=== PATIENT | female | born 1990 | race Caucasian/White ===

== ENCOUNTER 2016-06-05 11:08 | Emergency (ER) | payer SELFPAY ==
[~2016-06-05] VITALS: Ht 175.3 cm; Wt 94.3 kg
[~2016-06-05 11:08] MED LIST: ADULT WAL-100 MG/5 M ORAL; LOPERAMIDE2 MG PO; QUETIAPINE FUMA25 MG ORAL; ZOFRAN4 MG ORAL
[2016-06-05] MEDS ORDERED: NKM (11:26)
[2016-06-05 11:36] VITALS: BP 125/79
--- NOTE | 2016-06-05 11:44 | Emergency Room Report ---
History of Present Illness General Chief Complaint: Upper Respiratory Illness Source: Patient Present Illness HPI Patient presents with complaints of cough and congestion Ongoing for the past 4 days Patient feels her symptoms have been worsening Denies any vomiting or diarrhea She has had some chills at home Pressure behind the right ear Denies any recent travel denies any pleurisy or leg swelling Patient has also been having runny nose Allergies: Coded Allergies: No Known Allergies (Unverified , 12/22/12) Patient History Past Medical History: see triage record Pertinent Family History: none Last Menstrual Period: 05/12/2016 Now: No Reviewed Nursing Documentation: PMH: Agreed, PSxH: Agreed Nursing Documentation-PMH Past Medical History: No Stated History Review of Systems All Other Systems: negative except mentioned in HPI Physical Exam Vital Signs Date Time Temp Pulse Resp B/P Pulse Ox O2 Delivery O2 Flow Rate FiO2 06/05/16 11:22 98.1 93 16 125/79 98 Room Air Sp02 EP Interpretation: reviewed, normal General Appearance: well appearing, no apparent distress Head: normocephalic, atraumatic Eyes: bilateral eye EOMI, bilateral eye PERRL ENT: hearing grossly normal, normal pharynx, TMs + canals normal, uvula midline Neck: full range of motion, supple, no meningismus, no bony tend Respiratory: lungs clear, normal breath sounds, no rhonchi, no respiratory distress, no retraction, no accessory muscle use Cardiovascular #1: normal peripheral pulses, regular rate, rhythm, no edema, no gallop, no JVD, no murmur Gastrointestinal: normal bowel sounds, non tender, soft, no mass, no organomegaly, non-distended, no guarding, no hernia, no pulsatile mass, no rebound Genitourinary: no CVA tenderness Musculoskeletal: normal inspection Neurologic: oriented x3, responsive, roll examiner III-XII nml as tested, motor strength/ tone normal, sensory intact Psychiatric: mood/affect normal Skin: normal color, no rash, warm/dry, palpation normal Lymphatic: normal inspection, no adenopathy Medical Decision Making Diagnostic Impression: Primary Impression: Upper respiratory infection ER Course Multiple differentials considered Including but not limited to pneumonia, URI Patient's x-ray does not reveal any obvious acute pathology Patient remains appropriate of saturation and respiration At this time stable for initial conservative outpatient trial Chest X-Ray Diagnostic Results EP Interpretation: Yes Findings: no consolidation, no effusion, no pneumothorax Number of Views: 1 Last Vital Signs Date Time Temp Pulse Resp B/P Pulse Ox O2 Delivery O2 Flow Rate FiO2 06/05/16 11:36 93 16 Room Air 06/05/16 11:36 98.1 125/79 98 Status: improved Disposition: HOME, SELF-CARE Condition: Improved Scripts Albuterol Sulfate* (ALBUTEROL SULFATE MDI*) 8.5 Gm Hfa.aer.ad 2 PUFF INH Q6H, #1 EA 0 Refills Prov: CAMILLE GRANADOS D.O. 06/05/16 Referrals: NOT CHOSEN [facility]/MD,REFERRING (PCP) Additional Instructions: Patient is provided with the discharge instructions notified to follow up with primary doctor in the next 2-3 days otherwise return to the er with any worsening symptoms. Please note that this report is being documented using [employer] technology. This can lead to erroneous entry secondary to incorrect interpretation by the dictating instrument. CAMILLE GRANADOS D.O. Jun 05, 2016 11:44
[2016-06-05] MEDS ORDERED: Albuterol ud Inhalation HHN ONE (11:45)
[2016-06-05] MEDS ORDERED: Ipratropium 0.02% Inh Soln 2.5ml UD HHN ONE (11:45)
[2016-06-05] MEDS ORDERED: ALBUTEROL SULF8.5 GM INH (12:29)
[2016-06-05] MEDS ORDERED: AZITHROMYCIN250 MG ORAL (12:29)
[2016-06-05 13:13] VITALS: BP 120/72
--- NOTE | 2016-06-06 08:25 | Diagnostic Imaging Report ---
Clinical history: Shortness of breath. Technique: Portable AP chest radiograph was obtained. Comparison: None Findings: The lungs are well inflated and clear. There is no pneumonia or pulmonary edema. There is no pleural effusion or pneumothorax. The cardiac and mediastinal silhouettes are normal in appearance. The bony thorax is unremarkable. Impression: No acute cardiopulmonary process.
== END 2016-06-05 13:15 | disposition home or self-care (01) ==
LOC: EMR 11:38
DX: J06.9 Acute upper respiratory infection, unspecified (principal)
CPT/HCPCS: 71010; 94640; 94664; 99283

== ENCOUNTER 2017-04-19 13:48 | Emergency (ER) | payer MEDICAID ==
[~2017-04-19] VITALS: Ht 175.3 cm; Wt 100.7 kg
[~2017-04-19 13:48] MED LIST changes: +ALBUTEROL SULF8.5 GM INH; +AZITHROMYCIN250 MG ORAL; +NKM
--- NOTE | 2017-04-19 14:32 | Emergency Room Report ---
History of Present Illness General Chief Complaint: Earache Source: Patient Present Illness HPI 26 yo female presents to ER complaining of left ear pain. Reports ear infection 1 week ago that increased intensity; states treated with Advil with no relief of pain symptoms. Reports feeling of "spider in my ear" x3days with worsening of ear pain symptoms. Denies fever. Patient complains of hearing loss in left ear. Patient reports attempting to remove spider from ear with mechanical use and olive oil. Patient reports history of recurrent ear infections as a child. Denies hearing loss, vision changes, nausea, vomiting, Denies chest pain, SOB, rash. Allergies: Coded Allergies: No Known Allergies (Unverified , 12/22/12) Patient History Past Medical History: see triage record Pertinent Family History: none Last Menstrual Period: 03/28/17 Now: No Reviewed Nursing Documentation: PMH: Agreed, PSxH: Agreed Nursing Documentation-PMH History Of Psychiatric Problem: Yes - Bipolar; Schizoaffective Review of Systems All Other Systems: negative except mentioned in HPI Physical Exam Vital Signs Date Time Temp Pulse Resp B/P (MAP) Pulse Ox O2 Delivery O2 Flow Rate FiO2 04/19/17 13:58 97.7 84 16 122/73 98 Room Air Sp02 EP Interpretation: reviewed, normal General Appearance: alert, GCS 15, non-toxic, mild distress Head: normocephalic, atraumatic Eyes: bilateral eye normal inspection, bilateral eye PERRL ENT: hearing grossly normal - whisper test negative for hearing loss, normal pharynx, normal voice, TMs + canals normal - right ear, uvula midline, other - left ear: ruptured TM, no erythema, canal normal, no drainage, no blood, no edema; no otorrhea Neck: full range of motion Respiratory: chest non-tender, lungs clear, normal breath sounds, speaking full sentences Cardiovascular #1: regular rate, rhythm, no edema Musculoskeletal: back normal, digits/nails normal, gait/station normal, normal range of motion, non-tender Neurologic: alert, oriented x3, responsive, motor strength/tone normal, sensory intact, speech normal Psychiatric: mood/affect normal Skin: normal color, no rash, warm/dry, well hydrated Lymphatic: no adenopathy Medical Decision Making PA Attestation Dr. Mack is my supervising Physician whom patient management has been discussed with. Diagnostic Impression: Primary Impression: Ruptured tympanic membrane ER Course Pt presents to ED c/o ear pain DDX considered but are not limited to foreign body in ear, ruptured TM, otitis externa, otitis media. VITAL SIGNS are WNL, patient is afebrile. ORDERS: none required at this time, diagnosis is clinical ED INTERVENTIONS: none required at this time DISCHARGE: -Rx provided for Augmentin PO. Use as directed. -Rx provided for Cortisporin ear drops. -Rx provided for Motrin for pain. At this time pt is stable for d/c to home. Patient to take medications as instructed Will provide with patient care instructions and any necessary prescriptions. Care plan and follow-up instructions provided. Patient instructed to follow-up with ENT physician in 1-3 days. Patient questions asked and answered. Patient reports understanding and agreement to treatment plan. ER precautions given. Patient instructed to return to ER immediately for any new or worsening of symptoms including but not limited to fever, worsening of pain, hearing loss. Last Vital Signs Date Time Temp Pulse Resp B/P (MAP) Pulse Ox O2 Delivery O2 Flow Rate FiO2 04/19/17 13:58 97.7 84 16 122/73 98 Room Air Disposition: HOME, SELF-CARE Condition: Stable Scripts Ibuprofen* (MOTRIN*) 600 Mg Tablet 600 MG ORAL Q6H Y for For Pain, #30 TAB Prov: Kaiser Patel 04/19/17 Amoxicillin/Potassium Clav 875-125* (AUGMENTIN 875-125 TABLET*) 1 Each Tablet 1 TAB ORAL TWICE A DAY for 7 Days, #21 TAB Prov: Kaiser Patel 04/19/17 Neomycin/Polymyxin B Sulf/Hc* (CORTISPORIN EAR SOLUTION*) 10 Ml Solution 4 DROP LEFT EAR QID for 7 Days, #10 ML 0 Refills Prov: Kaiser Patel 04/19/17 Patient Instructions: Eardrum Perforation, [id number] Additional Instructions: Followup with ENT specialist in 1-3 days for further treatment. Followup with primary care provider in 1-3 days. Take medications as directed. Patient questions asked and answered. ER precautions given, patient instructed to return to ER immediately for any new or worsening of symptoms. Kaiser Patel Apr 19, 2017 14:32
[2017-04-19] MEDS ORDERED: CORTISPORIN EAR10 ML LEFT EAR (14:46)
[2017-04-19] MEDS ORDERED: IBUPROFEN600 MG ORAL (14:46)
[2017-04-19] MEDS ORDERED: AUGMENTIN 875-1 EAC1 ORAL (14:46)
[2017-04-19 15:18] VITALS: BP 122/73
== END 2017-04-19 15:20 | disposition home or self-care (01) ==
LOC: EMR 14:36
DX: H72.92 Unspecified perforation of tympanic membrane, left ear (principal); F25.0 Schizoaffective disorder, bipolar type
CPT/HCPCS: 99283; 99284

== ENCOUNTER 2017-12-13 09:29 | Emergency (ER) | payer MEDICAID ==
[~2017-12-13] VITALS: Ht 175.3 cm; Wt 102.1 kg
[~2017-12-13 09:29] MED LIST changes: +AUGMENTIN 875-1 EAC1 ORAL; +CORTISPORIN EAR10 ML LEFT EAR; +IBUPROFEN600 MG ORAL
[2017-12-13] MEDS ORDERED: NKM (09:39)
[2017-12-13 10:07] VITALS: BP 133/58
[2017-12-13 10:10] LABS: APPEARANCE,URINE TURBID; BILIRUBIN, URINE NEGATIVE (NEGATIVE); COLOR,URINE PALE YELLOW; GLUCOSE, URINE (UA) NEGATIVE (NEGATIVE); KETONES,URINE NEGATIVE (NEGATIVE); LEUKOCYTE ESTERASE ,URINE 1+ (NEGATIVE); NITRITE,URINE NEGATIVE (NEGATIVE); PH,URINE 5 (4.5-8.0); PROTEIN,URINE NEGATIVE (NEGATIVE); UROBILINOGEN,URINE NORMAL MG/DL (0.0-1.0)
[2017-12-13 10:13] LABS: BASOPHILS % (AUTO) 1.4 % (0.0-2.0); EOSINOPHILS % (AUTO) 2.8 % (0.0-3.0); HEMATOCRIT 41.5 % (37.0-47.0); HEMOGLOBIN 13.8 G/DL (12.0-16.0); MEAN CORPUSCULAR VOLUME 77 FL (80-99); MONOCYTES % (AUTO) 4.6 % (1.0-10.0); NEUTROPHILS % (AUTO) 51.2 % (45.0-75.0); PLATELET COUNT 331 K/UL (150-450); RED CELL DISTRIBUTION WIDTH 11.2 % (11.6-14.8); WHITE BLOOD COUNT 6.7 K/UL (4.8-10.8)
[2017-12-13] MEDS ORDERED: Lidocaine 2% Visc 15ml soln ORAL ONE (10:30)
[2017-12-13 10:32] LABS: ANION GAP 7 mmol/L (5-15); BLOOD UREA NITROGEN 14 mg/dL (7-18); CALCIUM 8.8 MG/DL (8.5-10.1); CARBON DIOXIDE 27 MMOL/L (21-32); CHLORIDE 103 MMOL/L (98-107); CREATININE 0.7 MG/DL (0.55-1.30); POTASSIUM 3.8 MMOL/L (3.5-5.1); SODIUM 137 MMOL/L (136-145)
[2017-12-13 10:47] LABS: ALANINE AMINOTRANSFERASE 107 U/L (12-78); ALBUMIN 3.7 G/DL (3.4-5.0); ALKALINE PHOSPHATASE 116 U/L (46-116); ASPARTATE AMINO TRANSFERASE 67 U/L (15-37); BILIRUBIN,TOTAL 0.4 MG/DL (0.2-1.0); CKMB 0.7 NG/ML (0.0-3.6); CREATINE KINASE 119 U/L (26-308)
--- NOTE | 2017-12-13 11:11 | Emergency Room Report ---
History of Present Illness General Chief Complaint: Chest Pain Source: Patient Present Illness HPI This patient complains of chest pain. She states initially the symptoms started yesterday when she was driving. She states a reoccurred last night. She describes that is in her lower mid chest. She denies nausea or vomiting. She denies fever or chills. She denies cough or congestion. She states that she also became anxious during these episodes and started crying. She denies abdominal pain. She denies dysuria or hematuria. She has no other complaints. Allergies: Coded Allergies: No Known Allergies (Unverified , 12/22/12) Patient History Past Medical History: see triage record, seizures Social History: Denies: smoking, alcohol use, drug use Now: No Reviewed Nursing Documentation: PMH: Agreed; PSxH: Agreed Nursing Documentation-PMH Past Medical History: No History, Except For History Of Psychiatric Problem: Yes - bipolar, shizophrenia Hx Seizures: Yes Review of Systems All Other Systems: negative except mentioned in HPI Physical Exam Vital Signs Date Time Temp Pulse Resp B/P (MAP) Pulse Ox O2 Delivery O2 Flow Rate FiO2 12/13/17 09:32 98.5 69 20 138/76 96 Room Air 98.4 Sp02 EP Interpretation: reviewed, normal General Appearance: no apparent distress, alert, GCS 15, non-toxic Head: normocephalic, atraumatic Eyes: bilateral eye normal inspection, bilateral eye PERRL ENT: hearing grossly normal, normal pharynx, no angioedema, normal voice Neck: full range of motion, supple/symm/no masses Respiratory: chest non-tender, lungs clear, normal breath sounds, no respiratory distress, no retraction, no accessory muscle use, speaking full sentences Cardiovascular #1: regular rate, rhythm, no edema Gastrointestinal: normal bowel sounds, non tender, soft, non-distended, no guarding, no rebound Rectal: deferred Musculoskeletal: back normal, gait/station normal, normal range of motion, non- tender Neurologic: alert, oriented x3, responsive, motor strength/tone normal, sensory intact, speech normal Psychiatric: judgement/insight normal, memory normal, mood/affect normal, no suicidal/homicidal ideation Skin: normal color, no rash, warm/dry, well hydrated Medical Decision Making Diagnostic Impression: Primary Impression: Chest pain ER Course This patient has nonspecific chest pain. Given the length of symptoms, this workup is very reassuring with negative cardiac enzymes, normal EKG, and normal chest x-ray. The patient is low risk and her symptoms are atypical for acute coronary syndrome. I have very low suspicion for PE, aortic dissection or pneumothorax based on history/physical, laboratory and radiologic workup. The patient was given close return precautions and followup instructions. Laboratory Tests Test 12/13/17 09:52 White Blood Count 6.7 K/UL (4.8-10.8) Red Blood Count 5.40 M/UL (4.20-5.40) Hemoglobin 13.8 G/DL (12.0-16.0) Hematocrit 41.5 % (37.0-47.0) Mean Corpuscular Volume 77 FL (80-99) L Mean Corpuscular Hemoglobin 25.6 PG (27.0-31.0) L Mean Corpuscular Hemoglobin Concent 33.3 G/DL (32.0-36.0) Red Cell Distribution Width 11.2 % (11.6-14.8) L Platelet Count 331 K/UL (150-450) Mean Platelet Volume 5.7 FL (6.5-10.1) L Neutrophils (%) (Auto) 51.2 % (45.0-75.0) Lymphocytes (%) (Auto) 40.0 % (20.0-45.0) Monocytes (%) (Auto) 4.6 % (1.0-10.0) Eosinophils (%) (Auto) 2.8 % (0.0-3.0) Basophils (%) (Auto) 1.4 % (0.0-2.0) Urine Color Pale yellow Urine Appearance Turbid Urine pH 5 (4.5-8.0) Urine Specific [place] 1.015 (1.005-1.035) Urine Protein Negative (NEGATIVE) Urine Glucose (UA) Negative (NEGATIVE) Urine Ketones Negative (NEGATIVE) Urine Blood Negative (NEGATIVE) Urine Nitrite Negative (NEGATIVE) Urine Bilirubin Negative (NEGATIVE) Urine Urobilinogen Normal MG/DL (0.0-1.0) Urine Leukocyte Esterase 1+ (NEGATIVE) H Urine RBC 0-2 /HPF (0 - 2) Urine WBC 2-4 /HPF (0 - 2) Urine Squamous Epithelial Cells Moderate /LPF (NONE/OCC) H Urine Bacteria Few /HPF (NONE) Urine HCG, Qualitative Negative (NEGATIVE) Sodium Level 137 MMOL/L (136-145) Potassium Level 3.8 MMOL/L (3.5-5.1) Chloride Level 103 MMOL/L (98-107) Carbon Dioxide Level 27 MMOL/L (21-32) Anion Gap 7 mmol/L (5-15) Blood Urea Nitrogen 14 mg/dL (7-18) Creatinine 0.7 MG/DL (0.55-1.30) Estimate Glomerular Filtration Rate > 60 mL/min (>60) Glucose Level 138 MG/DL (74-106) H Calcium Level 8.8 MG/DL (8.5-10.1) Total Bilirubin 0.4 MG/DL (0.2-1.0) Aspartate Amino Transferase (AST) 67 U/L (15-37) H Alanine Aminotransferase (ALT) 107 U/L (12-78) H Alkaline Phosphatase 116 U/L (46-116) Total Creatine Kinase 119 U/L (26-308) Creatine Kinase MB 0.7 NG/ML (0.0-3.6) Creatine Kinase MB Relative Index 0.5 Troponin I 0.000 ng/mL (0.000-0.056) Total Protein 7.5 G/DL (6.4-8.2) Albumin 3.7 G/DL (3.4-5.0) Globulin 3.8 g/dL Albumin/Globulin Ratio 1.0 (1.0-2.7) Urine Opiates Screen Negative (NEGATIVE) Urine Barbiturates Screen Negative (NEGATIVE) Phencyclidine (PCP) Screen Negative (NEGATIVE) Urine Amphetamines Screen Negative (NEGATIVE) Urine Benzodiazepines Screen Negative (NEGATIVE) Urine Cocaine Screen Negative (NEGATIVE) Urine Marijuana (THC) Screen Positive (NEGATIVE) H EKG Diagnostic Results Rate: normal Rhythm: NSR ST Segments: no acute changes Rhythm Strip Diag. Results EP Interpretation: yes Rate: 70's Rhythm: NSR, no PVC's, no ectopy Chest X-Ray Diagnostic Results Chest X-Ray Diagnostic Results : Chest X-Ray Ordered: Yes # of Views/Limited/Complete: 1 View Indication: Chest Pain EP Interpretation: Yes Interpretation: no consolidation, no effusion, no pneumothorax, no acute cardiopulmonary disease Impression: No acute disease Electronically Signed by: Ashly Last Vital Signs Date Time Temp Pulse Resp B/P (MAP) Pulse Ox O2 Delivery O2 Flow Rate FiO2 12/13/17 10:07 98.4 63 18 133/58 99 Room Air 98.4 Status: improved Disposition: HOME, SELF-CARE Condition: Improved Referrals: [facility],REFERRING (PCP) Patient Instructions: Nonspecific Chest Pain Lora Terrell DO Dec 13, 2017 11:11
[2017-12-13] MEDS ORDERED: RANITIDINE HCL150 MG ORAL (11:14)
[2017-12-13 11:25] VITALS: BP 124/76
--- NOTE | 2017-12-13 15:00 | Diagnostic Imaging Report ---
Indication: Chest pain Technique: One view of the chest Comparison: 06/05/2016 Findings: Lungs and pleural spaces are clear. Heart size is normal. There is no significant interim change Impression: No acute process
== END 2017-12-13 11:26 | disposition home or self-care (01) ==
LOC: EMR 10:24
DX: R07.9 Chest pain, unspecified (principal); F31.9 Bipolar disorder, unspecified
CPT/HCPCS: 36415; 71045; 80053; 80307; 81003; 81025; 82550; 82553; 84484; 85025; 96360; 99284

== ENCOUNTER 2018-09-09 11:49 | Emergency (ER) | payer MEDICAID ==
[~2018-09-09] VITALS: Ht 175.3 cm; Wt 106.6 kg
[~2018-09-09 11:49] MED LIST changes: +RANITIDINE HCL150 MG ORAL
--- NOTE | 2018-09-09 12:18 | NUR ---
ED Nurse Note: pt walked in c/o abd pain, pt states she is 35 weeks and this is her 4th , [id number], pt reports pain started around 130 am this morning, feels like burning sensation. denies any complication with previous , vaginal delivery, pt vss, ambulates w/ steady gait, will cont monitor.
--- NOTE | 2018-09-09 12:45 | NUR ---
ED Nurse Note: report given to DE Morfin from [facility] L&D.
--- NOTE | 2018-09-09 12:48 | Emergency Room Report ---
History of Present Illness General Chief Complaint: Complications Source: Patient Present Illness HPI Patient presents with complaints of mid abdominal cramping reports that initially started last night however this morning again felt increased cramping cannot relate that there is any Rhythmical or close proximity to the cramps However upon arrival did feel cramping at that time Denies any chest pain or shortness of breath denies any vomiting denies any vaginal discharge denies any gush of fluids Denies any vaginal bleeding or spotting patient is G4, P1 Her last [employer] SAL[employer]NA[employer] visit was about 2 weeks ago and she was 33 weeks at that time Denies any fevers denies any focal weakness Allergies: Coded Allergies: No Known Allergies (Unverified , 12/22/12) Patient History Past Medical History: see triage record Pertinent Family History: none Now: Yes : 4 Para: 1 Reviewed Nursing Documentation: PMH: Agreed; PSxH: Agreed Nursing Documentation-PMH Past Medical History: No Stated History Hx Seizures: Yes Review of Systems All Other Systems: negative except mentioned in HPI Physical Exam Vital Signs Date Time Temp Pulse Resp B/P (MAP) Pulse Ox O2 Delivery O2 Flow Rate FiO2 09/09/18 11:57 97.3 104 18 113/87 (96) 100 Room Air Sp02 EP Interpretation: reviewed, normal General Appearance: well appearing, no apparent distress Head: normocephalic, atraumatic Eyes: bilateral eye PERRL, bilateral eye EOMI ENT: hearing grossly normal, normal pharynx, TMs + canals normal, uvula midline Neck: full range of motion, supple, no meningismus, no bony tend Respiratory: lungs clear, normal breath sounds, no rhonchi, no respiratory distress, no retraction, no accessory muscle use Cardiovascular #1: normal peripheral pulses, regular rate, rhythm, no edema, no gallop, no JVD, no murmur Gastrointestinal: non-distended, no hernia, no rebound, other - Gravid abdomen is palpable Genitourinary: no CVA tenderness, other - Pelvic evaluation was performed the office appears closed and is fairly high riding Musculoskeletal: normal inspection Neurologic: oriented x3, responsive, wheel press operator III-XII nml as tested, motor strength/ tone normal, sensory intact Psychiatric: mood/affect normal Skin: no rash Lymphatic: normal inspection, no adenopathy Procedures Critical Care Time Critical Care Time 30 minutes for multiple re-evaluations presentations that are critical and concerning, not including any procedural time Medical Decision Making Diagnostic Impression: Primary Impression: Complication of Additional Impression: Abdominal pain affecting ER Course Given the patient's presentation and history [facility] labor and delivery was contacted emergently patient does not show signs of being in active labor however given the contractions this is concerning Bedside ultrasound reveals intrauterine with heart tone of 155 Pelvic evaluation reveals an ostitis closed at this time further testing or evaluation was not performed in order not to delay transfer and high level of care I did speak to [employer] physician at [facility] and patient is accepted for further higher level of care transfer Last Vital Signs Date Time Temp Pulse Resp B/P (MAP) Pulse Ox O2 Delivery O2 Flow Rate FiO2 09/09/18 11:57 97.3 104 18 113/87 (96) 100 Room Air Status: improved Disposition: [facility] Condition: Serious Referrals: [facility],REFERRING (PCP) Karan Mack DO Sep 09, 2018 12:48
[2018-09-09 13:12] VITALS: BP 113/87
--- NOTE | 2018-09-09 13:12 | NUR ---
ED Nurse Note: patient is being transferred [facility] with stable vital signs. patient is alert awake x4 ambulatory, breathing unlabored and even, skin is warm to touch
== END 2018-09-09 13:12 | disposition short-term general hospital (02) ==
LOC: EMR 12:12
DX: O26.93 Pregnancy related conditions, unspecified, third trimester (principal); Z68.33 Body mass index [BMI] 33.0-33.9, adult; R10.9 Unspecified abdominal pain; G40.909 Epilepsy, unspecified, not intractable, without status epilepticus
CPT/HCPCS: 96360; 99291